=== PATIENT | male | born 1995 | race Caucasian/White ===

== ENCOUNTER → 2016-07-23 | Outpatient (CLI) | payer BC, OTHER ==
--- NOTE | 2016-07-23 14:36 | DIAGNOSTIC IMAGING REPORT ---
LEFT HIP 2 VIEWS CLINICAL HISTORY: Left hip pain. FINDINGS: AP and frog-leg views of the left hip are compared to study dated 01/28/2016. The skeletal structures are well mineralized. No fracture is seen. The joint space of the hip is well maintained. A secondary ossification center involving the acetabulum is unchanged. There is mild bony overgrowth along the acetabular roof. The overlying soft tissues are within normal limits. IMPRESSION: There is no acute bony abnormality seen in the left hip and there has been no significant change from prior studies. Electronically signed by: Paul Arzola M.D. 07/23/2016 2:34 PM Dictated Date/Time: 07/23/2016 2:33 PM
--- NOTE | 2016-07-23 14:37 | DIAGNOSTIC IMAGING REPORT ---
RIGHT HIP UNILATERAL MIN 2 VIEWS CLINICAL HISTORY: BILATERAL HIP PAIN Right COMPARISON: Right hip 01/28/2016. FINDINGS: Alignment of the right hip is anatomic. There is mild superior joint space narrowing, unchanged with subchondral sclerosis. Abnormal lobular contour of the femoral head neck junction is noted. A small ossific density lateral to the acetabulum is again noted. No fracture or suspicious lesion is present. IMPRESSION: 1. Mild superior joint space narrowing with mild osteophytosis. 2. No acute fracture. 3. Findings raising the possibility of femoroacetabular impingement, as described above. 4. Overall, findings are not significantly changed. Electronically signed by: Kendrick Morse M.D. 07/23/2016 2:34 PM Dictated Date/Time: 07/23/2016 2:32 PM
--- NOTE | 2016-07-23 15:25 | DIAGNOSTIC IMAGING REPORT ---
LUMBAR SPINE 7 VIEWS with flexion and extension HISTORY: BILATERAL HIP PAIN COMPARISON: None. FINDINGS: There is no fracture. No subluxation. Disc spaces are preserved. There is a transitional vertebra at the lumbosacral junction. The associated disc space narrowing at this level is likely on a developmental rather than degenerative basis. The alignment is intact through both flexion and extension. IMPRESSION: No fracture or subluxation within the lumbar spine. Please refer to the same day hip radiographs for further evaluation. Electronically signed by: Kendrick oMrse M.D. 07/23/2016 3:23 PM Dictated Date/Time: 07/23/2016 3:20 PM
== END | disposition home or self-care (01) ==
LOC: C.RDSM 14:19
PROVIDERS: ATTEND Internal Medicine
DX: M25.551 Pain in right hip (principal); M25.552 Pain in left hip

== ENCOUNTER → 2016-12-01 | Outpatient (CLI) | payer BC, OTHER ==
--- NOTE | 2016-12-01 18:57 | DIAGNOSTIC IMAGING REPORT ---
LUMBAR SPINE MIN 4 VIEWS CLINICAL HISTORY: Lower back pain. COMPARISON: Lumbar spine radiograph July 23, 2016. FINDINGS: Alignment of the lumbar spine is anatomic. Vertebral body heights are maintained. Transitional vertebra is noted at the lumbosacral junction. This is designated as L5 for purposes of numbering on this exam. This is partially sacralized. There is mild disc space narrowing at L5-S1. IMPRESSION: 1. No acute lumbar spine fracture or subluxation. 2. Mild disc space narrowing at L5-S1. 3. Transitional vertebra at the lumbosacral junction. Please see above numbering scheme the lumbar spine. Electronically signed by: Addy Case M.D. 12/01/2016 6:56 PM Dictated Date/Time: 12/01/2016 6:17 PM
== END | disposition home or self-care (01) ==
LOC: C.RDSM 18:02
PROVIDERS: ATTEND Internal Medicine
DX: M54.9 Dorsalgia, unspecified (principal); Q76.49 Other congenital malformations of spine, not associated with scoliosis

== ENCOUNTER → 2017-08-12 | Outpatient (CLI) | payer BC, OTHER ==
--- NOTE | 2017-08-12 09:31 | DIAGNOSTIC IMAGING REPORT ---
L WRIST W/NAVICULAR MIN 3 VIEWS HISTORY: 22 years-old Male LEFT WRIST PAIN/INJURY acute left wrist pain COMPARISON: None available TECHNIQUE: 4 views of the left wrist FINDINGS: No acute fracture, dislocation or significant degenerative changes. Scaphoid appears intact. No opaque foreign body. IMPRESSION: No acute fracture. The above report was generated using voice recognition software. It may contain grammatical, syntax or spelling errors. Electronically signed by: Rafa Doshi M.D. 08/12/2017 9:30 AM Dictated Date/Time: 08/12/2017 9:27 AM
== END | disposition home or self-care (01) ==
LOC: C.RDSM 09:16
PROVIDERS: ATTEND Internal Medicine
DX: S69.92XA Unspecified injury of left wrist, hand and finger(s), initial encounter (principal); X58.XXXA Exposure to other specified factors, initial encounter